=== PATIENT | female | born 1950 | race Caucasian/White ===

== ENCOUNTER 2017-03-13 20:01 | Emergency (ER) | payer MEDICARE, OTHER ==
--- NOTE | 2017-03-13 20:15 | ED Physician Documentation ---
General Adult - HISTORIAN Historian: patient - HPI Chief Complaint: General Adult Further Comments: yes (Has been out in the heat. Had been frying fish and felt that she could smaell some propane while frying the fish. Has been drinking water. This evening was having some trouble with walking, like she was drunk. Has been urinating ok. Has been having some vertigo symptoms when her eyes are closed, feels dizzy and also gets nauseated. Patient states that she ahd some dizziness also last week that lasted for a short period of time. Denies any tinitus or hearing problems. Has been having a floater that appeared in the left eye earlier this week.) - ROS CONST: no problems. denies: fever EYES/ENT: problems with vision (above) CVS/RESP: denies: chest pain GI/: none - PAST HX Past History: hypertension, other (hypothyroidism) Allergies/Adverse Reactions: Allergies Allergy/AdvReac Type Severity Reaction Status Date / Time sulfamethoxazole Allergy Verified 03/13/17 20:12 [From Bactrim] trimethoprim [From Bactrim] Allergy Verified 03/13/17 20:12 - SOCIAL HX Smoking History: non-smoker Alcohol Use: none Drug Use: none - FAMILY HX Family History: No - REVIEWED ASSESSMENTS Nursing Assessment Reviewed: Yes Vitals Reviewed: Yes Progress - Progress Progress: 2102 Patient is still complaining of dizziness, spinning feeling associated with nausea when she closes her eyes. 2158 Better since taking meclazine 2306 IV instilling, feeling better, still feels dizzy with some mild nausea when laying down with eyes closed, better when sitting up with eyes closed. Symptoms felt to be related to inner ear pathology. General Adult Physical Exam - PHYSICAL EXAM GENERAL APPEARANCE: mild distress EENT: eye inspection normal, ENT inspection normal, pharynx normal, no signs of dehydration, SHANAE, TM's nml. No: dry mucous membranes NECK: normal inspection, supple RESPIRATORY: no resp distress, chest non-tender, breath sounds normal. No: wheezes, rales, rhonchi CVS: reg rate & rhythm, heart sounds normal, equal pulses ABDOMEN: soft, no organomegaly, normal bowel sounds, no abdominal bruit BACK: normal inspection, no CVA tenderness SKIN: warm/dry, normal color NEURO: oriented X3, CN's nml as tested, motor nml, sensation nml, mood/affect nml, cognition normal, other (DTR 2/4 in all extremities. Gait is waddling, falling to the right) Discharge Clincal Impression: Dizziness Referrals: Brenda Mckeon FNP [Primary Care Provider] - 2 Days Additional Instructions: Patient advised to take meclizine 25mg q 6 hours PRN dizziness. Use a walker or cane to ambulate with. If symptoms do not improve to follow-up with primary care provider. Condition: Stable Disposition: 01 HOME, SELF-CARE Decision to Admit: NO Date of Decison to Admit: 03/14/17 Decision Time: 01:20
[2017-03-13] MEDS ORDERED: 0.9 % SODIUM CHLORIDE 500 ML IV ONE ×2 (20:41→21:34)
[2017-03-13 20:50] LABS: BASOPHILS % 0.9 (0.0-1.5); EOSINOPHILS % 2.1 % (0.0-6.8); MEAN CORPUSCULAR HEMOGLOBIN 29.6 pg (28.0-34.0); MEAN CORPUSCULAR VOLUME 85.8 fl (80.0-100.0); MONOCYTES % 8.2 % (0.0-11.0); NEUTROPHILS # 3.8 # k/uL (1.4-7.7)
[2017-03-13] MEDS ORDERED: 0.9 % SODIUM CHLORIDE 500 ML IV SCH (21:00)
[2017-03-13 21:04] LABS: eGFR (African) > 60; eGFR (Non-African) > 60
[2017-03-13] MEDS ORDERED: MECLIZINE HCL 25 MG TABLET PO ONE (21:28)
[2017-03-13] MEDS ORDERED: POTASSIUM CHLORIDE IV SCH ×2 (21:30)
[2017-03-13] MEDS ORDERED: SODIUM CHLORIDE IV SCH ×2 (21:30)
[2017-03-13] MEDS ORDERED: DIAZEPAM 5 MG TABLET PO ONE ×2 (23:47)
[2017-03-14 00:43] VITALS: BP 164/82
[2017-03-14 05:35] LABS: APPEARANCE,URINE CLOUDY (CLEAR); COLOR,URINE YELLOW (YELLOW); OCCULT BLOOD,URINE NEGATIVE (NEGATIVE); PH URINE 5.5 (5.0 - 8.0); UROBILINOGEN URINE 0.2 Eu (0.2-1.0)
== END 2017-03-13 23:55 | disposition home or self-care (01) ==
LOC: ED 20:01
DX: R42 Dizziness and giddiness (principal)
CPT/HCPCS: 80053; 85025; J7060; 81002; 87086; 96360; 99283; J3480; J7030; S1016